=== PATIENT | female | born 1965 | race Caucasian/White ===

== ENCOUNTER 2022-06-17 01:58 | Inpatient (IN) | payer BC ==
[~2022-06-17] VITALS: Ht 162.6 cm; Wt 67.2 kg
[2022-06-17] MEDS ORDERED: OMEPRAZOLE10 MG PO (11:08)
[2022-06-17] MEDS ORDERED: AMOXICILLIN500 MG PO (11:09)
[2022-06-17] MEDS ORDERED: MEDROL DOSEPAK 24 MG PO (11:09)
[2022-06-17] MEDS ORDERED: MULTI-VITAMIN1 EACH PO (12:01)
[2022-06-17 12:11] LABS: HEMOGLOBIN 13.9 gm/dl (12.3-15.3); RED BLOOD COUNT 4.7 M/UL (4.00-5.10); WHITE BLOOD COUNT 11.1 K/UL (4.5-11.0)
[2022-06-17 12:43] LABS: BUN/CREATININE RATIO 40 (0-10)
[2022-06-18 04:49] LABS: HEMOGLOBIN 12.8 gm/dl (12.3-15.3); RED BLOOD COUNT 4.35 M/UL (4.00-5.10); WHITE BLOOD COUNT 10.6 K/UL (4.5-11.0)
[2022-06-18 05:22] LABS: BUN/CREATININE RATIO 36 (0-10)
[2022-06-19 01:13] LABS: HEMOGLOBIN 12.3 gm/dl (12.3-15.3); RED BLOOD COUNT 4.18 M/UL (4.00-5.10); WHITE BLOOD COUNT 9.3 K/UL (4.5-11.0)
[2022-06-19] MEDS ORDERED: ASPIRIN EC81 MG PO (13:48)
[2022-06-19] MEDS ORDERED: NITROGLYCERIN0.4 MG SL (13:48)
[2022-06-19] MEDS ORDERED: ROCEPHIN 1 GM AD1 GM IV (13:48)
[2022-06-19] MEDS ORDERED: ATORVASTATIN CA40 MG PO (13:48)
[2022-06-19] MEDS ORDERED: DOXYCYCLINE HY100 M2 PO (13:48)
[2022-06-19] MEDS ORDERED: HEPARIN IV (13:48)
[2022-06-19] MEDS ORDERED: LASIX20 MG PO (14:38)
[2022-06-19 14:40] LABS: BUN/CREATININE RATIO 31 (0-10)
--- NOTE | 2022-06-19 23:09 | NUR ---
PT TRANFERED VIA AMBULANCE FOR HIGHER LEVEL OF CARE. PT GOING TO [facility], [facility] [place]. RECIEVING NURSE HEIDI. PT AND VITAL SIGNS STABLE. IV INTACT HEPARIN RUNNING AT 16.5 MLS/HR. ALL BELONGINGS WITH PATIENT AND FAMILY.
== END 2022-06-19 23:00 | disposition short-term general hospital (02) | DRG 280 ==
LOC: PROG CARE 10:28
PROVIDERS: Internal Medicine; Internal Medicine Interventional Cardiology; Physician Assistant Medical; ADMIT Family Medicine
PROC: B24BZZZ Ultrasonography of Heart with Aorta (ICD-10-PCS; principal; 2022-06-18)
PROC: 4A023N7 Measurement of Cardiac Sampling and Pressure, Left Heart, Percutaneous Approach (ICD-10-PCS; 2022-06-19)
PROC: B2111ZZ Fluoroscopy of Multiple Coronary Arteries using Low Osmolar Contrast (ICD-10-PCS; 2022-06-19)
DX: I11.0 Hypertensive heart disease with heart failure (principal); I50.23 Acute on chronic systolic (congestive) heart failure; I21.4 Non-ST elevation (NSTEMI) myocardial infarction; J18.9 Pneumonia, unspecified organism; J96.01 Acute respiratory failure with hypoxia; K21.9 Gastro-esophageal reflux disease without esophagitis; I25.10 Atherosclerotic heart disease of native coronary artery without angina pectoris; E11.9 Type 2 diabetes mellitus without complications; E87.6 Hypokalemia; E78.5 Hyperlipidemia, unspecified; Z98.51 Tubal ligation status; Z98.890 Other specified postprocedural states; Z82.49 Family history of ischemic heart disease and other diseases of the circulatory system; Z80.8 Family history of malignant neoplasm of other organs or systems; Z87.891 Personal history of nicotine dependence; Z90.710 Acquired absence of both cervix and uterus; Z90.89 Acquired absence of other organs; Z83.3 Family history of diabetes mellitus; Z79.82 Long term (current) use of aspirin; Z79.899 Other long term (current) drug therapy
CPT/HCPCS: ECHO; 36415; 71045; 80048; 80053; 82550; 82553; 82962; 83735; 84132; 84443; 84484; 85025; 85027; 85610; 85730; 87086; 93005; 93306; 99152; C1769; C1887; C1894; J0456; J0696; J1644; J1940; J2250; J3010; J3475; J7030; J7040; J7050; Q9967